=== PATIENT | female | born 1990 | race Caucasian/White ===

== ENCOUNTER 2017-11-06 16:57 | Emergency (ER) | payer OTHER ==
[~2017-11-06] VITALS: Ht 167.6 cm; Wt 97.5 kg
[~2017-11-06 16:57] MED LIST: HUMALOG100 UNIT/1 SUB-Q; LUPRON DEPOT7.5 MG IM; OXYCODONE HCL5 MG PO; REGLAN10 MG PO; ZOFRAN4 MG PO
[2017-11-06] MEDS ORDERED: LANTUS100 UNITS/ SUB-Q (17:34)
[2017-11-06] MEDS ORDERED: HUMULIN R100 UNIT/1 INJ (17:36)
[2017-11-06] MEDS ORDERED: ZOFRAN ODT4 MG PO (17:36)
[2017-11-06] MEDS ORDERED: PROMETHAZINE HC25 M1 PO (19:39)
== END 2017-11-06 20:18 | disposition home or self-care (01) ==
LOC: ED 16:57
DX: R10.31 Right lower quadrant pain (principal); R11.2 Nausea with vomiting, unspecified; E10.43 Type 1 diabetes mellitus with diabetic autonomic (poly)neuropathy; K31.84 Gastroparesis; Z79.899 Other long term (current) drug therapy
CPT/HCPCS: 74177; 80053; 81001; 83690; 84703; 96361; 96374; 96375; 99284; J2405; J2550; J7030; Q9967

== ENCOUNTER 2021-10-20 18:14 | Emergency (ER) | payer SELFPAY ==
[~2021-10-20] VITALS: Ht 167.6 cm; Wt 97.5 kg
[~2021-10-20 18:14] MED LIST changes: +HUMULIN N100 UNIT/3 SUB-Q; +HUMULIN R100 UNIT/1 INJ; +LANTUS100 UNITS/ SUB-Q; +PROMETHAZINE HC25 M1 PO; +ZOFRAN ODT4 MG PO
[2021-10-21] MEDS ORDERED: PROMETHAZINE HC25 M1 PO (00:15)
[2021-10-21] MEDS ORDERED: ONDANSETRON ODT8 MG PO (00:15)
== END 2021-10-21 01:01 | disposition home or self-care (01) ==
LOC: ED 18:14
DX: B34.9 Viral infection, unspecified (principal); Z20.822 Contact with and (suspected) exposure to COVID-19; E10.43 Type 1 diabetes mellitus with diabetic autonomic (poly)neuropathy; K31.84 Gastroparesis; Z79.4 Long term (current) use of insulin
CPT/HCPCS: 36415; 71045; 80053; 81001; 82010; 82800; 83605; 83735; 84703; 85025; 87502; 96361; 96374; 96375; 96376; 99284-25; A9270; J2405; J2550; J7030; U0003

== ENCOUNTER 2022-05-06 13:22 | Emergency (ER) | payer OTHER ==
[~2022-05-06] VITALS: Ht 175.3 cm; Wt 113.8 kg
[~2022-05-06 13:22] MED LIST changes: +ONDANSETRON ODT8 MG PO
== END 2022-05-06 15:17 | disposition home or self-care (01) ==
LOC: ED 13:22
DX: S63.616A Unspecified sprain of right little finger, initial encounter (principal); E10.319 Type 1 diabetes mellitus with unspecified diabetic retinopathy without macular edema; E10.43 Type 1 diabetes mellitus with diabetic autonomic (poly)neuropathy; K31.84 Gastroparesis; W18.30XA Fall on same level, unspecified, initial encounter
CPT/HCPCS: 73140; 99283-25

== ENCOUNTER 2022-07-14 02:32 | Emergency (ER) | payer OTHER ==
[~2022-07-14] VITALS: Ht 167.6 cm; Wt 97.5 kg
[2022-07-14] MEDS ORDERED: ONDANSETRON ODT8 MG PO (05:34)
== END 2022-07-14 05:51 | disposition home or self-care (01) ==
LOC: ED 02:32
DX: E10.649 Type 1 diabetes mellitus with hypoglycemia without coma (principal); T38.3X5A Adverse effect of insulin and oral hypoglycemic [antidiabetic] drugs, initial encounter; K52.9 Noninfective gastroenteritis and colitis, unspecified; Z88.8 Allergy status to other drugs, medicaments and biological substances
CPT/HCPCS: 36415; 80053; 81003; 82010; 82800; 83690; 84703; 85025; 99284; A9270; J2405; J7030

== ENCOUNTER 2022-09-11 05:25 | Emergency (ER) | payer OTHER ==
[~2022-09-11] VITALS: Ht 167.6 cm; Wt 108.9 kg
[~2022-09-11 05:25] MED LIST changes: +MOTILIUM; +PRAVASTATIN SOD10 MG PO; +PRILOSEC OTC20 MG PO; +[UNRECOGNIZED DRUG - OTHER] PO
[2022-09-11 08:30] VITALS: BP 135/84
== END 2022-09-11 08:35 | disposition home or self-care (01) ==
LOC: ED 05:25
DX: F10.929 Alcohol use, unspecified with intoxication, unspecified (principal); E10.65 Type 1 diabetes mellitus with hyperglycemia; Z88.6 Allergy status to analgesic agent; Z88.8 Allergy status to other drugs, medicaments and biological substances; Z79.4 Long term (current) use of insulin; Z79.899 Other long term (current) drug therapy
CPT/HCPCS: 36415; 80053; 85025; G0480; J1815; J7030

== ENCOUNTER 2022-09-22 05:35 | Day surgery (SDC) | payer OTHER ==
[~2022-09-22] VITALS: Ht 167.6 cm; Wt 109.0 kg
--- NOTE | ~2022-09-22 | OR ---
[facility] [address] [place] [id number] Draft DATE OF OPERATION: 09/22/2022 SURGEON: Anant Daniel DO PREOPERATIVE DIAGNOSES: 1. Loss IUD. 2. Cervical cancer screening needed. 3. Type 1 diabetes. POSTOPERATIVE DIAGNOSES: 1. Malpositioned IUD. 2. Cervical cancer screening needed. 3. Type 1 diabetes. PROCEDURES PERFORMED: 1. Hysteroscopic removal of malpositioned intrauterine device. 2. Pap under anesthesia. 3. Dilation and curettage. ANESTHESIA: MAC. ESTIMATED BLOOD LOSS: 5 mL. SPECIMEN: 1. Endometrial curettings. 2. Pap with HPV. FINDINGS: Normal external genitalia. Normal vagina and cervix. Cervix closed with no IUD strings noted. On hysteroscopy, IUD was malpositioned with the arms in the proper position, the stem skewed toward the right tubal ostia, normal-appearing endometrium without polyps or fibroids. IUD was removed without difficulty. COMPLICATIONS: None. FLUID DEFICIT: 175 mL. PATIENT NAME: TRINY CHACON OPERATIVE REPORT DATE OF : [birth year] REPORT #: [id number] PHYSICIAN: ANANT DANIEL (GWYN) PCP: SIDDHARTH NANCE MD REPORT IS CONFIDENTIAL AND NOT TO BE RELEASED WITHOUT AUTHORIZATION [facility] [address] [place] [id number] Draft INDICATIONS: Ms. Chacon is a pleasant 32-year-old female who presents for hysteroscopic removal of malpositioned IUD. The patient with IUD and well past indicated years and she desires IUD removed. In the office, IUD strings were not seen. She is also due for Pap smear and recommended dilation and curettage. Risks, benefits, and alternatives were discussed in detail with the patient. The patient understands and wished to proceed the procedure. Medical history is complicated by type 1 diabetes with suboptimal control in the past. The patient was taken to the operating room. Time-out was performed to confirm correct patient and correct procedure. MAC anesthesia was adequately established. The patient was prepped and draped in the dorsal lithotomy position with feet in Yellofins stirrups. ICPs were on and running, and no preoperative antibiotics or heparin was indicated. Preoperative glucose was 158 and the patient had normal preoperative A1c. The bladder was drained. A weighted speculum was placed and the anterior lip of the cervix was grasped with Allis clamp. Pap smear was obtained. The cervix gently dilated using Hegar dilators #7. Operative hysteroscope was then placed in the cervical os and advanced under direct visualization to the uterine cavity. The Mirena IUD was noted in the uterine cavity with arms in normal position, but the stem skew deviating toward the right tubal ostia. Hysteroscopic graspers were selected and the stem of the IUD was grasped and the IUD was easily removed from the uterus without difficulty. Gentle sharp curettage was then performed and endometrial sampling was sent to pathology for further evaluation. Bleeding was scant. The Allis clamp was removed. The patient was taken to PACU in good and stable condition. Sponge, needle, and instrument count was correct x2 at the end of the procedure. Anant Daniel DO JDW/MODL /[id number] Copies: PATIENT NAME: TRINY CHACON OPERATIVE REPORT DATE OF : [birth year] REPORT #: [id number] PHYSICIAN: ANANT DANIEL DO (JD) PCP: SIDDHARTH NANCE MD REPORT IS CONFIDENTIAL AND NOT TO BE RELEASED WITHOUT AUTHORIZATION [address] [place], [place] [address] Draft ~ PATIENT NAME: TRINY CHACON OPERATIVE REPORT DATE OF : [birth year] REPORT #: [id number] PHYSICIAN: ANANT DANIEL) PCP: SIDDHARTH NANCE MD REPORT IS CONFIDENTIAL AND NOT TO BE RELEASED WITHOUT AUTHORIZATION
[2022-09-22 05:50] VITALS: BP 122/78
--- NOTE | 2022-09-22 08:06 | NUR ---
09/22/22 0806 Sheets,Jessica 0748 PT ARRIVED TO PACU ON 10L VIA MASK WITH ORAL AIRWAY IN PLACE. RESP EVEN AND UNLABORED. CBG 162. 0750 PT STARTS MOVING IN BED AND REACHING FOR HER FACE, ORAL AIRWAY REMOVED AND PT REORIENTED TO PACU, PT REPORTS THE NEED TO VOID. 0755 BADPAN PLACED AND O2 REMOVED. PT ABLE TO FOLLOW COMMANDS AND EASILY FALLS BACK TO SLEEP WITH SNORING NOTED. 0802 BADPAN REMOVED, NO VOID NOTED AND PT EASIYL FALLS RIGHT BACK TO SLEEP WITH SNORING NOTED.
[2022-09-22 09:05] VITALS: BP 125/77
--- NOTE | 2022-09-22 09:39 | NUR ---
LE 0905-PATIENT BACK TO ROOM FROM PACU ON . PATIENT IS DROWSY AND FALLS ASLEEP EASY. RESP EVEN AND UNLABORED. RATES PAIN 6/10 AND STATES "ITS UNCOMFORTABLE". NAUSEA HAS IMPROVED WITH MEDICATION FROM PACU. PROVIEDED PATIENT WITH A HEAT PACK AND WATER. FAMILY IN ROOM. CALL LIGHT WITHIN REACH.
[2022-09-22 10:03] VITALS: BP 117/59
--- NOTE | 2022-09-22 10:11 | NUR ---
PATIENT ASLEEP. PATEINT OPENS EYES AND STATES PAIN IS BETTER. SHE THEN FALLS BACK TO SLEEP. RESP EVEN AND UNLABORED. PARTNER STATES SHE WILL SLEEP ALL DAY. EXPLAINED TO PATIENTS PARTNER THAT WE WILL TRY TO WAKE HER UP IN 30 MINUTES AND SEE HOW SHE DOES. CALL LIGHT WITHIN REACH.
--- NOTE | 2022-09-22 10:41 | NUR ---
HOB ELEVATED. PATIENT IS VERY DROWSY. PATIENT OPENS EYES WITH VERBAL AND TACTILE STIMULATION BUT FALLS BACK TO SLEEP QUICKLY. WILL CHECK ON PATIENT AGAIN IN 15 MIN.
--- NOTE | 2022-09-22 10:52 | NUR ---
1045-PATIENT UP TO RESTROOM. GAIT STEADY AND TOLERATED WELL. PATIENT VOIDED 1000ML OF YELLOW URINE. 1050-PATIENT READY TO GO HOME. DENIES NAUSEA. PATIENT WILL GET DRESSED.
[2022-09-22 10:55] VITALS: BP 118/78
--- NOTE | 2022-09-22 13:17 | NUR ---
LE 1055-PATIENT SITTING AT SIDE OF BED. RESP EVEN AND UNLABORED. RATES PAIN 3/10 AND DENIES NAUSEA. STATES SHE FEELS BETTER JUST FEELING TIRED. PATIENT IS TAKING SIPS OF WATER. SHE IS READY TO GO HOME.
--- NOTE | 2022-09-22 13:19 | NUR ---
LE 1100-PROVIDED DISCHARGE INSTRUCTIONS TO PATIENT AND PARTNER. ALL QUESTIONS ANSWERED. PATIENT AMBULATES TO WHEELCHAIR AND RIDE PROVIDED TO FRONT OF HOSPITAL WHERE PARTNER WAS WAITING WITH THE CAR.
--- NOTE | 2022-09-23 12:28 | PATH ---
[facility] [address] [facility] [place], [place] [address] Signed SPECIMEN(S): A ENDOMETRIAL CURETTINGS SPECIMEN SOURCE: A. ENDOMETRIAL CURETTINGS CLINICAL HISTORY: Screening Pap with HPV. Cervical cancer screening. History of misplaced IUD. FINAL PATHOLOGIC DIAGNOSIS: Endometrial curettings: - Scant endometrium with prominent decidual change, negative for atypical features, hyperplasia, or malignancy. - Scant benign endocervical / lower uterine segment-type mucosa, negative for atypical features or malignancy. - Mucoid and slight inflammatory debris. - Fragment of benign ectocervical epithelium. - See comment. COMMENT: The endometrial sampling is scant. If clinical concern persists, additional sampling may be considered. JVR:graeme:C2NR MICROSCOPIC EXAMINATION: Histologic sections of all submitted blocks are examined by light microscopy. These findings, together with the gross examination, support the pathologic diagnosis. GROSS DESCRIPTION: The specimen, labeled and designated "Oswaldo, endometrial curettings," is received in formalin and consists of multiple fragments of red-sullivan mucoid tissue (2.9 x 2.0 x 0.6 cm in aggregate). The specimen is submitted entirely in cassette (A1). VB (under the direct supervision of a pathologist) The Gross Description was prepared using a voice recognition system. The report was reviewed for accuracy; however, sound-alike word errors, addition and/or deletions may occur. If there is any question about this report, please contact Client Services. PERFORMING LABORATORY: The technical component was performed by [employer], Alon Aguirre, PATIENT NAME: TRINY YUAN PATHOLOGY DATE OF : [birth year] REPORT #: [id number] PHYSICIAN: ABBY MONTGOMERY PCP: SIDDHARTH NANCE MD REPORT IS CONFIDENTIAL AND NOT TO BE RELEASED WITHOUT AUTHORIZATION [address] [place], [place] [address] [place] [address] (CLIA# [id number]). Professional interpretation was performed by [facility] - [address] [address] (CLIA#: [id number]). Diagnostician: Pancho Lind MD Pathologist Electronically Signed 09/23/2022 Copies: ~ PATIENT NAME: TRINY YUAN PATHOLOGY DATE OF : [birth year] REPORT #: [id number] PHYSICIAN: ABBY MONTGOMERY PCP: SIDDHARTH NANCE MD REPORT IS CONFIDENTIAL AND NOT TO BE RELEASED WITHOUT AUTHORIZATION
--- NOTE | 2022-09-26 15:10 | PATH ---
[facility] [address] [facility] [place], [place] [address] Signed ORDERING PHYSICIAN: Ramo Daniel DO PATIENT NAME: SONY YUANLeonie LYON GENDER: F : 1990 Prior History: No cases found. SPECIMEN(S): Cervical/ Endocervical CLINICAL HISTORY: Routine Pap Smear CYTOLOGIC INTERPRETATION: Negative for intraepithelial lesion or malignancy. MOLECULAR PATHOLOGY RESULTS: HPV High Risk - Negative TECHNICAL NOTES: To improve disease detection, this slide is screened using automated intelligence technology. This specimen was received in a vial of liquid-based fixative and was processed using thin layer Pap technology. SPECIMEN ADEQUACY: Satisfactory for evaluation. Endocervical and/or metaplastic cells present. ADDITIONAL NOTES: The Pap smear is a screening test designed to aid in the detection of premalignant and malignant conditions of the uterine cervix. It is not a diagnostic procedure and should not be used as the sole means of detecting cervical cancer. Both false-positive and false-negative reports do occur. ADDITIONAL NOTES.: The [employer] Aptima HPV assay is a nucleic acid amplification test for the qualitative detection of E6/E7 viral messenger RNA (mRNA) from HPV types 16, 18, 31, 33, 35, 39, 45, 51, 52, 56, 58, 59, 66, and 68. Refer to the test directory for assay limitations. ThinPrep Pap collections are FDA-approved. SurePath Pap collections are not FDA-approved but performance characteristics were determined at the performing PATIENT NAME: TRINY YUAN CAMRON PATHOLOGY DATE OF : [birth year] REPORT #: [id number] PHYSICIAN: ABBY PATHOLOGY PCP: SIDDHARTH NANCE MD REPORT IS CONFIDENTIAL AND NOT TO BE RELEASED WITHOUT AUTHORIZATION [address] [place] [address] Signed laboratory. [facility] is certified under CLIA as qualified to perform high complexity testing. PERFORMING LABORATORY: Technical preparation was performed by [facility], [address] [place] [address] (CLIA#: [id number]). PERFORMING LABORATORY.: Molecular testing was performed by [facility] [address] [address], , CLIA #: [id number]. Diagnostician: Matt FOSTER ([facility]) [employer] Report Developer Electronically Signed 09/26/2022 Copies: ~ PATIENT NAME: TRINY YUAN PATHOLOGY DATE OF : [birth year] REPORT #: [id number] PHYSICIAN: ABBY MONTGOMERY PCP: SIDDHARTH NANCE MD REPORT IS CONFIDENTIAL AND NOT TO BE RELEASED WITHOUT AUTHORIZATION
== END 2022-09-22 11:00 | disposition home or self-care (01) ==
LOC: DS 05:35 → OPS 05:35
PROVIDERS: ATTEND Obstetrics & Gynecology
DX: T83.32XD Displacement of intrauterine contraceptive device, subsequent encounter (principal); Y76.8 Miscellaneous obstetric and gynecological devices associated with adverse incidents, not elsewhere classified; Z12.4 Encounter for screening for malignant neoplasm of cervix; E10.8 Type 1 diabetes mellitus with unspecified complications; I10 Essential (primary) hypertension; E66.01 Morbid (severe) obesity due to excess calories; Z68.39 Body mass index [BMI] 39.0-39.9, adult; Z88.8 Allergy status to other drugs, medicaments and biological substances; Z79.899 Other long term (current) drug therapy
CPT/HCPCS: 00952; J0780; J1100; J1885; J2250; J2405; J2704; J2765; J3010; J7121

== ENCOUNTER 2024-08-02 15:11 | Emergency (ER) | payer OTHER ==
[~2024-08-02] VITALS: Ht 167.6 cm; Wt 130.0 kg
[2024-08-02 15:31] LABS: BASOPHILS 1.3 % (0-2); EOSINOPHILS 2.2 % (0-6); HEMATOCRIT 40.3 % (35.0-50.0); HEMOGLOBIN 13.8 g/dL (12.0-18.0); LYMPHOCYTES 28.5 % (24-44); MCH 32.6 (27-36); MCHC 34.3 g/dl (30-36); MONOCYTES 7.3 % (0-12); NEUTROPHILS 60.7 % (39-80); PLATELET COUNT 411 K/uL (140-440); RBC 4.24 M/ul (4.3-5.7); RDW 14.7 (10.5-15.0)
[2024-08-02] MEDS ORDERED: INSULIN LI100 UNIT/1 (15:32)
[2024-08-02] MEDS ORDERED: DULOXETINE HCL40 MG PO (15:32)
[2024-08-02 15:48] LABS: ALBUMIN 3.7 g/dL (3.4-5.0); ALBUMIN/GLOBULIN RATIO 0.9 (1.1-2.4); BILIRUBIN, TOTAL 0.4 mg/dL (0.2-1.0); BUN/CREATININE RATIO 8.16 (6.0-28.6); CALCIUM 9.3 mg/dL (8.5-10.1); CREATININE, SERUM 0.98 mg/dL (0.55-1.02); MAGNESIUM 1.9 mg/dL (1.8-2.4); PROTEIN, TOTAL 7.8 g/dL (6.4-8.2)
[2024-08-02] MEDS ORDERED: MORPHINE SULFATE 4 MG/ML VIAL IV ONE (18:15)
[2024-08-02] MEDS ORDERED: PROCHLORPERAZINE EDISYLATE 10 MG/2 ML VIAL IV ONE (18:15)
[2024-08-02 19:45] VITALS: BP 128/69
--- NOTE | 2024-08-03 15:49 | EKG ---
[facility] [address] [facility] [place] [address] Signed Sinus tachycardia Abnormal QRS-T angle, consider primary T wave abnormality Abnormal ECG When compared with ECG of 05-SEP-2022 10:58, No significant change was found Confirmed by Amador Ladd DO ([id number]) on 08/03/2024 3:49:19 PM Electronically Signed By: AMADOR LADD DO 08/03/24 1549 PATIENT NAME: SHERLY YUANGLORIA LYON Electrocardiogram DATE OF : [birth year] PHYSICIAN: AMADOR LADD DO REPORT #: [id number] REPORT IS CONFIDENTIAL AND NOT TO BE RELEASED WITHOUT AUTHORIZATION
== END 2024-08-02 19:55 | disposition home or self-care (01) ==
LOC: ED 15:11
PROVIDERS: Emergency Medicine
DX: R07.89 Other chest pain (principal); R60.0 Localized edema; E10.65 Type 1 diabetes mellitus with hyperglycemia; E10.43 Type 1 diabetes mellitus with diabetic autonomic (poly)neuropathy; K31.84 Gastroparesis; E10.319 Type 1 diabetes mellitus with unspecified diabetic retinopathy without macular edema; Z88.8 Allergy status to other drugs, medicaments and biological substances; Z88.6 Allergy status to analgesic agent; Z79.4 Long term (current) use of insulin; Z79.899 Other long term (current) drug therapy
CPT/HCPCS: 36415; 71045; 71260; 80053; 83735; 83880; 84484; 84703; 85025; 93005; 93010; 99285-25; J0780; J2270; Q9967

== ENCOUNTER 2024-12-30 21:53 | Emergency (ER) | payer OTHER ==
[~2024-12-30] VITALS: Ht 170.2 cm; Wt 147.0 kg
[~2024-12-30 21:53] MED LIST changes: +DULOXETINE HCL40 MG PO; +INSULIN LI100 UNIT/1
[2024-12-30] MEDS ORDERED: DULOXETINE HCL60 MG PO (22:12)
[2024-12-30] MEDS ORDERED: MOTEGRITY1 MG (22:14)
[2024-12-30] MEDS ORDERED: DOMPERIDONE PO (22:16)
[2024-12-30] MEDS ORDERED: SPIRONOLACTONE25 MG PO (22:16)
[2024-12-30 22:38] LABS: BASOPHILS 0.4 % (0.1-1.2); EOSINOPHILS 2.1 % (0.7-5.8); LYMPHOCYTES 21.6 % (19.3-51.7); MCH 31.7 PG (25.6-32.2); MCHC 33.6 g/dL (32.2-35.5); MCV 94.2 fL (79.4-94.8); MONOCYTES 5.8 % (4.7-12.5); NEUTROPHILS 69.7 % (34.0-71.1); RBC 3.98 M/uL (3.93-5.22)
[2024-12-30 22:54] LABS: ALT (SGPT) 59.0 U/L (14-59); AST (SGOT) 40.0 U/L (15-37); GLOMERULAR FILTRATION RATE,EST 71.0 mL/min (>60); PROTEIN, TOTAL 7.4 g/dL (6.4-8.2); UREA NITROGEN 9.0 mg/dL (7-18)
[2024-12-30] MEDS ORDERED: COLCHICINE 0.6 MG TAB PO ONE (23:15)
[2024-12-30] MEDS ORDERED: HYDROCODONE BIT/ACETAMINOPHEN 5/325 MG 1 TAB HOME.PACK PO ONE (23:30)
[2024-12-30] MEDS ORDERED: HYDROCODONE/ACETA 7.5/325 TAB PO ONE (23:30)
[2024-12-30 23:43] LABS: ERYTHROCYTE SEDIMENTATION RATE 52
[2024-12-31] MEDS ORDERED: COLCHICINE0.6 M1 PO (00:18)
[2024-12-31] MEDS ORDERED: DEXAMETHASONE SOD PHOS 10 MG/ML VIAL ONE (00:28)
[2024-12-31] MEDS ORDERED: COLCHICINE 0.6 MG TAB PO ONE (00:30)
[2024-12-31] MEDS ORDERED: DEXAMETHASONE SOD PHOS 10 MG/ML VIAL IV ONE (00:30)
[2024-12-31] MEDS ORDERED: LACTATED RINGER'S 1,000 ML IV ONE (00:30)
[2024-12-31] MEDS ORDERED: MORPHINE SULFATE 4 MG/ML VIAL IV ONE (00:45)
[2024-12-31 01:30] VITALS: BP 166/103
== END 2024-12-31 01:30 | disposition home or self-care (01) ==
LOC: ED 21:53
PROVIDERS: Internal Medicine
DX: M10.9 Gout, unspecified (principal); E10.42 Type 1 diabetes mellitus with diabetic polyneuropathy; J44.9 Chronic obstructive pulmonary disease, unspecified; Z88.8 Allergy status to other drugs, medicaments and biological substances; Z79.4 Long term (current) use of insulin; Z79.899 Other long term (current) drug therapy
CPT/HCPCS: 36415; 73630; 80053; 83735; 84550; 85025; 85379; 85651; 86140; 96374; 96375; 99283-25; A9270; J1100; J2270; J7121

== ENCOUNTER 2025-01-16 19:04 | Emergency (ER) | payer OTHER ==
[~2025-01-16] VITALS: Ht 170.2 cm; Wt 147.0 kg
[~2025-01-16 19:04] MED LIST changes: +COLCHICINE0.6 M1 PO; +DOMPERIDONE PO; +DULOXETINE HCL60 MG PO; +MOTEGRITY1 MG; +SPIRONOLACTONE25 MG PO
--- OUTSIDE RECORDS SUMMARY | 2025-01-16 19:12 | XMS ---
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 Physician Executive [employer] Planning Current PHONE: Unknown SIDDHARTH NANCE [facility] Current PHONE: Unknown Siddhartha has no Care Guidelines for this patient. EColleen VISIT COUNT (12 MO.) 3 CAROL Wang TOTAL 3 NOTE: Visits indicate total known visits. 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 - Pain in left foot - Type 1 diabetes mellitus with diabetic polyneuropathy 08/02/2024 15:11 CAROL Garcia [place] TYPE: Emergency COMPLAINT: - CHEST PAIN DIAGNOSES: - Allergy status to analgesic agent - Allergy status to other drugs, medicaments and biological substances - Chest pain, unspecified - Gastroparesis - Localized edema - [facility] (current) use of insulin - Other chest pain - 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
[2025-01-16] MEDS ORDERED: FAMOTIDINE 20 MG/ 2 ML VIAL IV ONE (19:45)
[2025-01-16] MEDS ORDERED: MORPHINE SULFATE 4 MG/ML VIAL IV ONE (19:45)
[2025-01-16] MEDS ORDERED: LACTATED RINGER'S 1,000 ML IV ONE (19:45)
[2025-01-16 20:13] LABS: BASOPHILS 0.6 % (0.1-1.2); EOSINOPHILS 2.8 % (0.7-5.8); LYMPHOCYTES 38.9 % (19.3-51.7); MCH 31.6 PG (25.6-32.2); MCHC 32.8 g/dL (32.2-35.5); MCV 96.5 fL (79.4-94.8); MONOCYTES 9.3 % (4.7-12.5); NEUTROPHILS 48.2 % (34.0-71.1); RBC 4.30 M/uL (3.93-5.22)
[2025-01-16 20:41] LABS: ALT (SGPT) 84.0 U/L (14-59); AST (SGOT) 48.0 U/L (15-37); GLOMERULAR FILTRATION RATE,EST 79.0 mL/min (>60); PROTEIN, TOTAL 7.6 g/dL (6.4-8.2); UREA NITROGEN 8.0 mg/dL (7-18)
[2025-01-16 21:14] LABS: BLOOD/HGB, URINE NEGATIVE (Negative); KETONE, URINE NEGATIVE (Negative); LEUK ESTERASE, URINE NEGATIVE (negative); NITRITE, URINE NEGATIVE (negative)
[2025-01-16 23:08] VITALS: BP 138/72
== END 2025-01-16 23:09 | disposition home or self-care (01) ==
LOC: ED 19:04
PROVIDERS: Internal Medicine
DX: R10.11 Right upper quadrant pain (principal); M10.9 Gout, unspecified; E10.43 Type 1 diabetes mellitus with diabetic autonomic (poly)neuropathy; K31.84 Gastroparesis; J44.9 Chronic obstructive pulmonary disease, unspecified; Z88.8 Allergy status to other drugs, medicaments and biological substances; Z79.4 Long term (current) use of insulin; Z79.899 Other long term (current) drug therapy
CPT/HCPCS: 36415; 76705; 80053; 81003; 82550; 83880; 84443; 84550; 85025; 96374; 96375; 99284-25; J2270; J2405; J7121